=== PATIENT | female | born 1965 | race African-American/Black ===

== ENCOUNTER 2016-11-06 10:22 | Emergency (ER) | payer OTHER ==
[~2016-11-06] VITALS: Ht 162.6 cm; Wt 79.8 kg
[~2016-11-06 10:22] MED LIST: HYDROXYZINE HCL25 M2; OMEPRAZOLE40 MG; PRINIVIL40 MG PO; SERTRALINE HCL50 MG; TRAMADOL 50 MG50 MG PO; VERAPAMIL ER120 M1 PO; ZPAK PO
[2016-11-06 11:07] LABS: ABSOLUTE NEUTROPHILS 6.6 thou/uL (1.4-8.2); BASOPHILS 0.9 % (0.0-2.0); EOSINOPHILS 2.7 % (0.0-3.0); HEMATOCRIT 39.5 % (37.0-47.0); HEMOGLOBIN 13.6 gm/dL (12.0-15.0); MCH 31.2 pg (26.0-34.0); MCHC 34.4 g/dL (28.0-37.0); MCV 90.7 fL (80.0-100.0); MONOCYTES 5.7 % (1.0-8.0); PLATELET COUNT 202 thou/uL (150-400); POLYS 69.7 % (36.0-66.0); RBC 4.36 mil/uL (4.20-5.00); RDW 13.2 % (10.5-14.5); WBC 9.4 thou/uL (4.0-11.0)
[2016-11-06 11:10] LABS: MANUAL DIFF NO
[2016-11-06 12:08] LABS: URINE BILIRUBIN NEGATIVE (Negative); URINE BLOOD 3+ (Negative); URINE COLOR YELLOW; URINE GLUCOSE-RANDOM* NEGATIVE (Negative); URINE KETONES NEGATIVE (Negative); URINE LEUKOCYTES-REFLEX NEGATIVE (Negative); URINE PROTEIN (DIPSTICK) NEGATIVE (Negative); URINE SPECIFIC GRAVITY 1.015 (1.003-1.035); URINE UROBILINOGEN 0.2 E.U./dl (0.2-1.0)
[2016-11-06 12:21] LABS: CASTS None Seen /LPF (None Seen); CRYSTALS None Seen /LPF (None Seen); SQUAMOUS 0-3 Few /LPF (0-3); URINE RBC >20 Many /HPF (0-2)
[2016-11-06 12:22] LABS: URINE WBC-REFLEX None Seen /HPF (0-5)
[2016-11-06 12:37] LABS: CALCIUM 9.4 mg/dL (8.5-10.1); POTASSIUM 4.4 mmol/L (3.5-5.1)
[2016-11-06 12:39] LABS: ALBUMIN 4.1 g/dL (3.4-5.0); TOTAL BILIRUBIN 0.6 mg/dL (<0.1-1.0); TOTAL PROTEIN 8.1 g/dL (6.4-8.2)
[2016-11-06] MEDS ORDERED: TRAMADOL 50 MG50 MG PO (14:01)
[2016-11-06 14:15] VITALS: BP 139/79
== END 2016-11-06 14:15 | disposition home or self-care (01) ==
LOC: ER 10:22
PROVIDERS: Emergency Medicine
DX: R10.31 Right lower quadrant pain (principal); I10 Essential (primary) hypertension; F41.9 Anxiety disorder, unspecified; F10.99 Alcohol use, unspecified with unspecified alcohol-induced disorder

== ENCOUNTER 2017-06-22 08:44 | Emergency (ER) | payer OTHER ==
[~2017-06-22] VITALS: Ht 157.5 cm; Wt 80.7 kg
[2017-06-22 09:37] LABS: ABSOLUTE NEUTROPHILS 7.8 thou/uL (1.4-8.2); BASOPHILS 0.6 % (0.0-2.0); HEMATOCRIT 37.2 % (37.0-47.0); HEMOGLOBIN 12.6 gm/dL (12.0-15.0); LYMPHOCYTES 18.8 % (24.0-44.0); MCH 31.8 pg (26.0-34.0); MCHC 33.8 g/dL (28.0-37.0); MCV 93.9 fL (80.0-100.0); MONOCYTES 6.9 % (1.0-8.0); PLATELET COUNT 196 thou/uL (150-400); POLYS 72.7 % (36.0-66.0); RBC 3.96 mil/uL (4.20-5.00); RDW 13.8 % (10.5-14.5); WBC 10.7 thou/uL (4.0-11.0)
[2017-06-22 09:49] LABS: CALCIUM 9.9 mg/dL (8.5-10.1); CREATININE 1.2 mg/dL (0.6-1.0); POTASSIUM 4.8 mmol/L (3.5-5.1)
[2017-06-22 09:55] LABS: MAGNESIUM 2.2 mg/dL (1.8-2.4)
[2017-06-22] MEDS ORDERED: NAPROSYN500 MG PO (10:37)
[2017-06-22] MEDS ORDERED: NORCO 5-325 TA1 EACH PO (10:37)
== END 2017-06-22 11:12 | disposition home or self-care (01) ==
LOC: ER 08:44
PROVIDERS: Emergency Medicine
DX: I82.401 Acute embolism and thrombosis of unspecified deep veins of right lower extremity (principal); M72.2 Plantar fascial fibromatosis; I10 Essential (primary) hypertension; F41.9 Anxiety disorder, unspecified

== ENCOUNTER 2017-07-04 11:20 | Emergency (ER) | payer OTHER ==
[~2017-07-04] VITALS: Ht 162.6 cm; Wt 84.4 kg
[~2017-07-04 11:20] MED LIST changes: +NAPROSYN500 MG PO; +NORCO 5-325 TA1 EACH PO
[2017-07-04] MEDS ORDERED: XARELTO15 MG PO (11:30)
[2017-07-04] MEDS ORDERED: ROBAXIN500 MG PO (11:47)
[2017-07-04 12:54] LABS: CALCIUM 9.7 mg/dL (8.5-10.1); CREATININE 1.1 mg/dL (0.6-1.0); POTASSIUM 4.3 mmol/L (3.5-5.1)
[2017-07-04 12:57] LABS: MAGNESIUM 2.1 mg/dL (1.8-2.4); PHOSPHORUS 3.4 mg/dL (2.5-4.9)
== END 2017-07-04 13:31 | disposition home or self-care (01) ==
LOC: ER 11:20
PROVIDERS: Emergency Medicine
DX: I82.401 Acute embolism and thrombosis of unspecified deep veins of right lower extremity (principal); R25.2 Cramp and spasm; I10 Essential (primary) hypertension; F41.9 Anxiety disorder, unspecified

== ENCOUNTER → 2017-09-11 | Outpatient (CLI) | payer OTHER ==
[~2017-09-11] MED LIST changes: +ROBAXIN500 MG PO; +XARELTO15 MG PO
== END ==
LOC: ULTRA 06:32
DX: I82.441 Acute embolism and thrombosis of right tibial vein (principal)

== ENCOUNTER → 2020-12-28 | Outpatient (CLI) | payer OTHER | LOC: BC 14:45 | PROVIDERS: ATTEND Family Medicine | DX: Z12.31 Encounter for screening mammogram for malignant neoplasm of breast (principal) ==